=== PATIENT | male | born 1955 | race Caucasian/White ===

== ENCOUNTER 2017-01-20 16:16 | Emergency (ER) | payer MEDICARE ==
[~2017-01-20 16:16] MED LIST: ASPIRIN; ASPIRIN EC81 M1 PO; ASPIRIN81 M1 PO; BAYER CHEWABLE81 MG PO; COMBIVENT U/D3 M4 INH; COREG3.125 MG PO; COREG6.25 MG PO; EFFER-K 20 MEQ20 MEQ PO; FLEXERIL10 MG PO; FUROSEMIDE40 MG PO; K-DUR20 ME2 PO; KLOR-CON PO; LASIX PO; LIPITOR20 MG PO; LISINOPRIL2.5 MG PO; NITROGLYGERIN0.4 MG; NITROGYLCERIN; ORUDIS75 M1 PO; PREDNISONE PO; SPIRIVA18 MCG INH; SYMBICORT 160/4.6 GM INH; TYLENOL PM EX-1 EAC1; TYLOX1 CAP 5/50 PO; VIBRAMYCIN100 M1 PO; ZESTRIL2.5 M1 PO
== END 2017-01-20 17:08 | disposition home or self-care (01) ==
LOC: CED 16:16 → CFTX 16:16
DX: Z76.0 Encounter for issue of repeat prescription (principal); E78.5 Hyperlipidemia, unspecified; I25.2 Old myocardial infarction; J44.9 Chronic obstructive pulmonary disease, unspecified; F17.210 Nicotine dependence, cigarettes, uncomplicated; I10 Essential (primary) hypertension; Z95.0 Presence of cardiac pacemaker
CPT/HCPCS: 99282